=== PATIENT | female | born 1930 | race Caucasian/White ===

== ENCOUNTER 2017-12-20 00:29 | Emergency (ER) | payer MEDICARE, OTHER ==
[~2017-12-20] VITALS: Ht 154.9 cm; Wt 63.5 kg
[~2017-12-20 00:29] MED LIST: AMARYL4 MG PO; ASPIR 8181 MG PO; ASPIRIN325 PO; ATIVAN1 MG PO; BACTRIM DS TAB1 EACH PO; CALCIUM 500 +1 EAC5 PO; CARDIZEM SR 60M60 MG PO; CARDIZEM120 MG PO; CELEBREX 200 M200 M1 PO; CIPRO500 MG PO; CLONIDINE HCL0.2 M2 PO; COLACE100 MG PO; COMBIVENT INH; DILTIAZEM ER60 M1 PO; DUONEB 2.5-0.5 M3 ML INH; DUREZOL5 ML OPHTHALMIC; ELIQUIS2.5 MG PO; FLOMAX0.4 MG PO; GLUCOPHAGE XR500 MG PO; GLUCOPHAGE500 MG PO; HYDROCHLOROTHIA25 M1 PO; HYDROCODONE-AP1 EAC6 PO; ILEVRO1.7 ML OPHTHALMIC; KEFLEX500 MG PO; KLOR-CON 1010 MEQ PO; LASIX 20 MG TAB20 MG PO; LASIX 40 MG TAB40 M2 PO; LEVOTHYROXIN0.025 MG PO; LISINOPRIL5 MG PO; LOPRESSOR25 PO; MACROBID 100 M100 M1 PO; METAMUCIL PAC1 UDPKT PO; METFORMIN HCL500 MG PO; MILK OF MA2400 MG/10 PO; NORCO 5-325 TA1 EACH PO; PHENAZOPYRIDIN100 M1 PO; POTASSIUM20 PO; PRILOSEC 10MG C10 MG PO; PRILOSEC 20 MG20 MG PO; TAZTIA XT180 MG PO; TRAMADOL 50 MG50 MG PO; ULTRAM 50MG TAB50 MG PO; VITAMIN D1000 UNI1 PO; ZOFRAN4 MG PO
[2017-12-20] MEDS ORDERED: TRADJENTA5 MG PO (00:54)
[2017-12-20] MEDS ORDERED: SINGULAIR 10 MG10 M1 (00:55)
[2017-12-20] MEDS ORDERED: TRAMADOL 50 MG50 MG (00:55)
[2017-12-20] MEDS ORDERED: ZYRTEC10 MG PO (00:55)
[2017-12-20] MEDS ORDERED: SYNTHROID25 MC1 PO (00:55)
[2017-12-20 01:10] LABS: URINE BILIRUBIN NEGATIVE (Negative); URINE BLOOD TRACE (Negative); URINE CLARITY CLEAR; URINE COLOR YELLOW; URINE GLUCOSE-RANDOM NEGATIVE (Negative); URINE KETONES NEGATIVE (Negative); URINE NITRITE-REFLEX NEGATIVE (Negative); URINE PROTEIN NEGATIVE (Negative); URINE SPECIFIC GRAVITY 1.015 (1.005-1.030); URINE UROBILINOGEN 0.2 E.U./dl (0.2-1.0)
[2017-12-20 01:16] LABS: URINE LEUKOCYTES-REFLEX 3+ (Negative)
[2017-12-20 01:34] LABS: CASTS None Seen /LPF (None Seen); SQUAMOUS 0-3 Few /LPF (0-3)
[2017-12-20 01:37] LABS: CRYSTALS None Seen /LPF (None Seen); URINE RBC 0-2 Rare /HPF (0-2); URINE WBC-REFLEX >25 Many /HPF (0-5)
[2017-12-20 01:56] LABS: ABSOLUTE BASOPHILS 0.1 thou/uL (0.0-0.2); ABSOLUTE EOSINOPHILS 0.2 thou/uL (0.0-0.7); ABSOLUTE LYMPHOCYTES 1.5 thou/uL (0.8-5.3); ABSOLUTE MONOCYTES 0.4 thou/uL (0.0-1.2); ABSOLUTE NEUTROPHILS 5.9 thou/uL (1.6-8.1); BASOPHILS 1.2 %; EOSINOPHILS 2.1 %; HEMATOCRIT 33.2 % (37.0-47.0); HEMOGLOBIN 10.7 gm/dL (12.0-15.0); LYMPHOCYTES 18.3 %; MCH 26.5 pg (26.0-34.0); MCHC 32.3 g/dL (28.0-37.0); MCV 81.9 fL (80.0-100.0); MONOCYTES 5.4 %; MPV 9.3 fl. (7.2-11.1); NUCLEATED RBCS 0 /100WBC; PLATELET COUNT* 210 thou/uL (150-400); RBC 4.05 mil/uL (4.20-5.00); RDW-CV 17.5 % (10.5-14.5); WBC 8.1 thou/uL (4.0-11.0)
[2017-12-20 02:04] LABS: ANION GAP 8 mmol/L (7-16); BUN 26 mg/dL (7-18); CALCIUM 9.2 mg/dL (8.5-10.1); CHLORIDE 106 mmol/L (98-107); CO2 24 mmol/L (21-32); CREATININE 1.3 mg/dL (0.6-1.3); GLUCOSE 157 mg/dL (70-99); POTASSIUM 4.7 mmol/L (3.5-5.1); SODIUM 138 mmol/L (136-145)
[2017-12-20 02:11] LABS: ALBUMIN 3.3 g/dL (3.4-5.0); ALKALINE PHOSPHATASE 103 U/L (46-116); SGOT 80 U/L (15-37); SGPT 62 U/L (30-65); TOTAL BILIRUBIN 0.2 mg/dL (<0.1-1.0); TOTAL PROTEIN 7.6 g/dL (6.4-8.2); TROPONIN-I LEVEL <0.06 ng/mL (<0.06)
[2017-12-20 03:38] LABS: BE -2.6 mmol/L (-2 to +3); HCO3 21.1 mmol/L (22.0-26.0); PCO2 32.8 mmHg (35.0-45.0); PO2 83.4 mmHg (75.0-100.0); pH 7.426 (7.340-7.450)
[2017-12-20] MEDS ORDERED: TESSALON PERLE100 MG PO (03:46)
[2017-12-20] MEDS ORDERED: MACROBID 100 M100 M1 PO (03:46)
[2017-12-20 04:10] VITALS: BP 141/87
--- NOTE | 2017-12-20 17:53 | EKG ---
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: JOSH : 1930 Requested By: Monserrat Espinosa Order Number: [id number] MD: Julian Hernandez Measurements Intervals [place] Rate: 109 P: AR: QRS: -36 QRSD: 85 T: 44 QT: 368 QTc: 496 Interpretive Statements Atrial fibrillation Left anterior fascicular block Borderline prolonged QT interval Compared to ECG 12/13/2016 20:24:00 ST (T wave) deviation no longer present Electronically Signed On 12-20-2017 17:53:22 CDT by Julian Hernandez [email or web address] <ELECTRONICALLY SIGNED> By: Jluian Hernandez MD, [facility] 12/20/17 1753 5 5 Julian Hernandez MD, [facility] /EPI
== END 2017-12-20 04:12 | disposition home or self-care (01) ==
LOC: M.ERS 00:29
PROVIDERS: Personal Emergency Response Attendant
DX: N39.0 Urinary tract infection, site not specified (principal); K56.7 Ileus, unspecified; E78.5 Hyperlipidemia, unspecified; E11.9 Type 2 diabetes mellitus without complications; I10 Essential (primary) hypertension; I48.91 Unspecified atrial fibrillation; M19.90 Unspecified osteoarthritis, unspecified site; Z90.49 Acquired absence of other specified parts of digestive tract; Z88.1 Allergy status to other antibiotic agents; Z88.0 Allergy status to penicillin; Z88.5 Allergy status to narcotic agent

== ENCOUNTER 2017-12-26 05:11 | Inpatient (IN) | payer MEDICARE, OTHER ==
[~2017-12-26] VITALS: Ht 154.9 cm; Wt 67.1 kg
[~2017-12-26 05:11] MED LIST changes: +SINGULAIR 10 MG10 M1; +SYNTHROID25 MC1 PO; +TESSALON PERLE100 MG PO; +TRADJENTA5 MG PO; +TRAMADOL 50 MG50 MG; +ZYRTEC10 MG PO
[2017-12-26 05:18] VITALS: BP 143/93
[2017-12-26] MEDS ORDERED: BACTRIM DS TAB1 EACH (05:29)
[2017-12-26 05:36] LABS: URINE BILIRUBIN NEGATIVE (Negative); URINE BLOOD TRACE (Negative); URINE CLARITY CLEAR; URINE COLOR YELLOW; URINE GLUCOSE-RANDOM NEGATIVE (Negative); URINE KETONES NEGATIVE (Negative); URINE NITRITE-REFLEX NEGATIVE (Negative); URINE PROTEIN 2+ (Negative); URINE SPECIFIC GRAVITY 1.015 (1.005-1.030); URINE UROBILINOGEN 0.2 E.U./dl (0.2-1.0)
[2017-12-26 05:39] LABS: URINE LEUKOCYTES-REFLEX 3+ (Negative)
[2017-12-26 05:49] LABS: CRYSTALS None Seen /LPF (None Seen); FINE GRANULAR CASTS 0-3 Few /LPF (None Seen); HYALINE CASTS 0-3 Few /LPF (None Seen); MUCUS 0-3 Light strn/LPF (None Seen); SQUAMOUS 0-3 Few /LPF (0-3); URINE RBC 0-2 Rare /HPF (0-2)
[2017-12-26 05:54] LABS: ABSOLUTE BASOPHILS 0.1 thou/uL (0.0-0.2); ABSOLUTE LYMPHOCYTES 1.4 thou/uL (0.8-5.3); ABSOLUTE MONOCYTES 0.6 thou/uL (0.0-1.2); ABSOLUTE NEUTROPHILS 6.8 thou/uL (1.6-8.1); BASOPHILS 0.8 %; EOSINOPHILS 0.3 %; HEMATOCRIT 34.6 % (37.0-47.0); LYMPHOCYTES 15.9 %; MCH 26.8 pg (26.0-34.0); MCHC 31.7 g/dL (28.0-37.0); MCV 84.7 fL (80.0-100.0); MONOCYTES 6.9 %; MPV 9.9 fl. (7.2-11.1); NUCLEATED RBCS 0 /100WBC; PLATELET COUNT* 223 thou/uL (150-400); POLYS 76.1 %; RBC 4.09 mil/uL (4.20-5.00); RDW-CV 18.6 % (10.5-14.5); WBC 8.9 thou/uL (4.0-11.0)
[2017-12-26 06:00] LABS: ANION GAP 15 mmol/L (7-16); BUN 28 mg/dL (7-18); CHLORIDE 103 mmol/L (98-107); CO2 17 mmol/L (21-32); CREATININE 1.3 mg/dL (0.6-1.3); GLUCOSE 212 mg/dL (70-99); SODIUM 135 mmol/L (136-145)
[2017-12-26 06:09] LABS: ALBUMIN 3.5 g/dL (3.4-5.0); ALKALINE PHOSPHATASE 78 U/L (46-116); LIPASE 58 U/L (73-393); SGOT 26 U/L (15-37); SGPT 51 U/L (30-65); TOTAL BILIRUBIN 0.8 mg/dL (<0.1-1.0); TOTAL PROTEIN 7.5 g/dL (6.4-8.2); TROPONIN-I LEVEL <0.06 ng/mL (<0.06)
--- NOTE | 2017-12-26 07:01 | NUR ---
RECIEVED REPORT AND ASSUMED CARE FROM EDOUARD SANDERS RN. PT RESTING IN BED WITH EYES CLOSED. NO DISTRESS OBSERVED. IV ANTIBIOTICS INFUSING AT THIS TIME. PHYSICIAN AWARE OF LOW BLOOD PRESSURE AND STATES ORDER FOR A FLUID BOLUS TO BE ORDERED.
[2017-12-26 08:00] VITALS: BP 106/64
[2017-12-26 08:18] VITALS: BP 96/62
--- NOTE | 2017-12-26 11:13 | NUR ---
PATIENT CARE ASSUMED AT 1110. PATIENT HAVING ECHOCARDIOGRAM AT THIS TIME.
[2017-12-26 12:10] VITALS: BP 108/68
--- NOTE | 2017-12-26 13:45 | 2DMMODE ---
[place] [address] 2 D/M-MODE ECHOCARDIOGRAM Name: SVEN OLMSTEAD Room: [address] IN [facility]#: [id number] Admission: 12/26/17 Attend Phys: Gaby Sagastume, Discharge: Date of : [birth year] Date of Service: 12/26/17 1345 Report #: [id number] THIS REPORT FOR: //name// APPROVED REPORT Study performed: 12/26/2017 10:56:51 EXAM: Comprehensive 2D, Doppler, and color-flow Echocardiogram Patient Location: In-Patient Room #: 002 Status: routine BSA: 1.62 HR: 82 bpm BP: 106/64 mmHg Rhythm: Atrial Fibrillation Other Information Study Quality: Good Indications Congestive Heart Failure Atrial Fibrillation Echo Enhancing Agent Agent(s) / Amount(s) Used: , cc 2D Dimensions LVEF(%): 37.04 (>50%) IVSd: 13.02 (7-11mm) LVOT Diam: 18.64 (18-24mm) LVDd: 46.51 mm PWd: 10.92 (7-11mm) Ascending Ao: 34.32 (22-36mm) LVDs: 38.24 (25-40mm) Aortic Root: 30.75 mm Kiser's LVEF: 37.04 % Volumes Left Atrial Volume (Systole) LA ESV Index: 46.60 mL/m2 Aortic Valve AoV Peak Kolton.: 2.28 m/s AO Peak Gr.: 20.72 mmHg LVOT Max P.86 mmHg AO Mean Gr.: 12.85 mmHg LVOT Mean P.01 mmHg LVOT Max V: 0.68 m/s AO V2 VTI: 42.46 cm LVOT Mean V: 0.47 m/[place] [address] 2 D/M-MODE ECHOCARDIOGRAM Name: SVEN OLMSTEAD Room: [address] IN [facility]#: [id number] Admission: 12/26/17 Attend Phys: Gaby Sagastume, Discharge: Date of : [birth year] Date of Service: 12/26/17 1345 Report #: [id number] MARTHA (VTI): 0.86 cm2 LVOT V1 VTI: 13.31 cm AI [place]: 1.84 m/s2 AI PHT: 558.91 ms Mitral Valve MV Decel. Time: 115.45 ms MV PHT: 33.48 ms MVA (PHT): 6.57 cm2 TDI Lateral E' Kolton.: 0.10 m/s Pulmonary Valve PV Peak Kolton.: 0.85 m/s PV Peak Gr.: 2.89 mmHg Tricuspid Valve RAP Estimate: 5.00 mmHg TR Peak Gr.: 35.28 mmHg RVSP: 40.28 mmHg PA Pressure: 40.28 mmHg Left Ventricle The left ventricle is normal size. There is normal LV segmental wall motion. Mild concentric left ventricular hypertrophy. Left ventricular systolic function is mildly decreased. LVEF is 45-50%. This study is not technically sufficient to allow evaluation of the LV diastolic function due to atrial fibrillation. Right Ventricle The right ventricle is normal size. The right ventricular systolic function is normal. Atria Left atrium is moderately dilated. The right atrium size is normal. Aortic Valve Moderate aortic valve sclerosis. Mild aortic regurgitation. Mild aortic stenosis. Mitral Valve The mitral valve is normal in structure. Mild to moderate mitral regurgitation. No evidence of mitral valve stenosis. There is normal mitral valve excursion. Tricuspid Valve The tricuspid valve is normal in structure. [place] [address] 2 D/M-MODE ECHOCARDIOGRAM Name: SVEN OLMSTEAD Room: [address]#: [id number] Admission: 12/26/17 Attend Phys: Gaby Sagastume, Discharge: Date of : [birth year] Date of Service: 12/26/17 1345 Report #: [id number] regurgitation. Pulmonic Valve The pulmonary valve is normal in structure. Mild pulmonic regurgitation. Great Vessels The aortic root is normal in size. IVC is normal in size and collapses with >50% inspiration Pericardium There is no pericardial effusion. <Conclusion> The left ventricle is normal size. Mild concentric left ventricular hypertrophy. Left ventricular systolic function is mildly decreased. LVEF is 45-50%. This study is not technically sufficient to allow evaluation of the LV diastolic function due to atrial fibrillation. The right ventricle is normal size. Left atrium is moderately dilated. Moderate aortic valve sclerosis. Mild aortic regurgitation. Mild aortic stenosis. The mitral valve is normal in structure. Mild to moderate mitral regurgitation. No evidence of mitral valve stenosis. There is normal mitral valve excursion. The tricuspid valve is normal in structure. Mild tricuspid regurgitation. The aortic root is normal in size. IVC is normal in size and collapses with >50% inspiration There is no pericardial effusion. There is normal LV segmental wall motion. <ELECTRONICALLY SIGNED> By: Lucio Bonilla MD, FACC 12/26/17 1345 1345 1345 Lucio Bonilla MD, FACC /INF
[2017-12-26 16:02] VITALS: BP 106/64
--- NOTE | 2017-12-26 18:38 | NUR ---
PATIENT PROGRESSING TOWARDS GOALS. APPEARS TO BE AT BASELINE COGNITION, AOX3, FORGETFUL. EXTREMELY HARD OF HEARING. DENIES ANY PAIN THROUGHOUT SHIFT. TRACES A-FIB WITH CONTROLLED 80-90 RATE WHILE IN BED, DOES GET TACHY WITH EXERTION, BUT RETURNS TO NORMAL LIMITS WITH REST. SALINE LOCKED IV IN LEFT FOREARM, FLUSHES WELL. PATIENT INCONTINENT IN BRIEFS X1. UP TO BSC X3 OTHERWISE. PATIENT'S SON'S ONLY CONCERN IS HER COUGH, THAT SHE APPARENTLY HAS CHRONICALLY. STATES "OXYGEN IS THE ONLY THING THAT CURES HER COUGH. I'VE BEEN TRYING TO GET THE DOCTOR TO PRESCRIBE IT FOR HER COUGH." EXPLAINED TO SON THAT OXYGEN CAN ONLY BE GIVEN IF PATIENT HAS INDICATION FOR IT AND THAT HER O2 SATS ARE ADEQUATE WITHOUT IT. SON ADAMENT THAT INSURANCE WILL PAY FOR IT LONG THE PHYSICIAN PRESCRIBES IT. AT THIS TIME, O2 ON AT 2L NC PER SON REQUEST, PATIENT STILL COUGHING. NO OTHER CONCERNS VOICED. PATIENT TELE STATUS.
--- NOTE | 2017-12-26 19:35 | EKG ---
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: : 1930 Requested By: Grant Harper Order Number: [id number] MD: Julian Hernandez Measurements Intervals [place] Rate: 107 P: AL: QRS: -35 QRSD: 87 T: 47 QT: 343 QTc: 458 Interpretive Statements Atrial fibrillation LVH with secondary repolarization abnormality Compared to ECG 12/20/2017 01:06:36 Left ventricular hypertrophy now present Early repolarization now present Electronically Signed On 12-26-2017 19:34:52 CDT by Julian Hernandez [email or web address] <ELECTRONICALLY SIGNED> By: Julian Hernandez MD, [facility] 12/26/17 1934 Julian Hernandez MD, FAC /EPI
[2017-12-26 20:00] VITALS: BP 116/57
[2017-12-27] VITALS: BP 127/82
[2017-12-27 04:00] VITALS: BP 110/66
--- NOTE | 2017-12-27 04:21 | NUR ---
PROGRESSING TOWARD GOALS. A-FIB CONTROLLED RATE 80'S. INTERMITTENTLY DESATS TO LOW 80'S WHEN SLEEPING. PT HAS DENIED PAIN. PT TURNS SELF INDEPENDENTLY, BUT WHEN NOTED TO BE IN THE SAME POSITION FOR 2HRS PT HAS BEEN ENCOURAGED TO TURN AND DOES SO WITHOUT NEED OF ASSISTANCE. CALL LIGHT WITHIN REACH.
[2017-12-27 06:06] LABS: HEMATOCRIT 31.3 % (37.0-47.0); HEMOGLOBIN 10.1 gm/dL (12.0-15.0); MCH 26.9 pg (26.0-34.0); MCHC 32.2 g/dL (28.0-37.0); MCV 83.4 fL (80.0-100.0); MPV 9.3 fl. (7.2-11.1); RBC 3.75 mil/uL (4.20-5.00); RDW-CV 18.4 % (10.5-14.5); WBC 8.1 thou/uL (4.0-11.0)
[2017-12-27 06:24] LABS: CALCIUM 8.7 mg/dL (8.5-10.1); CREATININE 1.3 mg/dL (0.6-1.3); POTASSIUM 4.1 mmol/L (3.5-5.1)
[2017-12-27 06:29] LABS: MAGNESIUM 1.7 mg/dL (1.8-2.4); TOTAL BILIRUBIN 0.3 mg/dL (<0.1-1.0); TOTAL PROTEIN 6.2 g/dL (6.4-8.2)
[2017-12-27 07:17] VITALS: BP 126/80
[2017-12-27] MEDS ORDERED: CEFUROXIME500 MG PO (08:01)
[2017-12-27 08:49] VITALS: BP 126/80
[2017-12-27 09:22] VITALS: BP 126/80
[2017-12-27 10:37] VITALS: BP 117/70
[2017-12-27] MEDS ORDERED: CARDIZEM CD120 MG PO (10:39)
--- NOTE | 2017-12-27 11:13 | NUR ---
PATIENT CARE ASSUMED AT 0700. PATIENT REMAINED AOX4, FORGETFUL. DENIED PAIN. HR 110S - 120S, CARDIOLOGY PLACED PATIENT ON DAILY 120 MG ER CARDIZEM. GIVEN, BLOOD PRESSURES REMAINED STABLE. PO CEFUROXIME SCRIPT GIVEN FOR UTI. SCRIPT GIVEN FOR DILTIZAEM. BOTH CALLED TO PHARMACY, PAPER SCRIPTS GIVEN TO SON JUST IN CASE. DRESSED IN OWN CLOTHES. ALL BELONGINGS TAKEN WITH PATIENT. IV DISCONTINUED. PATIENT TAKEN OUT IN HER OWN WHEELCHAIR WITH NURSING STAFF AND SON TO CAR.
== END 2017-12-27 11:11 | disposition home or self-care (01) | DRG 314 ==
LOC: M.ERS 05:11 → M.ICU 06:59 → M.TBA-ER 06:59 → M.ICU 08:20
PROVIDERS: Emergency Medicine Emergency Medical Services; ADMIT Internal Medicine
DX: I95.9 Hypotension, unspecified (principal); I50.33 Acute on chronic diastolic (congestive) heart failure; G93.40 Encephalopathy, unspecified; N39.0 Urinary tract infection, site not specified; I48.2 Chronic atrial fibrillation; I35.0 Nonrheumatic aortic (valve) stenosis; E11.9 Type 2 diabetes mellitus without complications; M19.90 Unspecified osteoarthritis, unspecified site; F99 Mental disorder, not otherwise specified; R05 Cough; E03.9 Hypothyroidism, unspecified; Z88.1 Allergy status to other antibiotic agents; Z88.0 Allergy status to penicillin; Z88.8 Allergy status to other drugs, medicaments and biological substances; Z79.01 Long term (current) use of anticoagulants; Z79.2 Long term (current) use of antibiotics; Z79.899 Other long term (current) drug therapy; Z90.49 Acquired absence of other specified parts of digestive tract

== ENCOUNTER 2018-01-03 06:20 | Inpatient (IN) | payer MEDICARE, OTHER ==
[~2018-01-03] VITALS: Ht 160 cm; Wt 67.4 kg
[~2018-01-03 06:20] MED LIST changes: +BACTRIM DS TAB1 EACH; +CARDIZEM CD120 MG PO; +CEFUROXIME500 MG PO
[2018-01-03 06:38] VITALS: BP 151/73
[2018-01-03 07:27] LABS: ABSOLUTE LYMPHOCYTES 1.2 thou/uL (0.8-5.3); ABSOLUTE MONOCYTES 0.5 thou/uL (0.0-1.2); ABSOLUTE NEUTROPHILS 5.2 thou/uL (1.6-8.1); BASOPHILS 0.5 %; EOSINOPHILS 0.3 %; HEMATOCRIT 33.4 % (37.0-47.0); HEMOGLOBIN 10.6 gm/dL (12.0-15.0); LYMPHOCYTES 17.7 %; MCH 25.9 pg (26.0-34.0); MCHC 31.8 g/dL (28.0-37.0); MCV 81.6 fL (80.0-100.0); MONOCYTES 7.2 %; MPV 9.4 fl. (7.2-11.1); NUCLEATED RBCS 0 /100WBC; PLATELET COUNT* 220 thou/uL (150-400); POLYS 74.3 %
[2018-01-03 07:33] LABS: ANION GAP 9 mmol/L (7-16); BUN 17 mg/dL (7-18); CALCIUM 9.6 mg/dL (8.5-10.1); CHLORIDE 102 mmol/L (98-107); CO2 23 mmol/L (21-32); GLUCOSE 160 mg/dL (70-99); POTASSIUM 4.1 mmol/L (3.5-5.1); SODIUM 134 mmol/L (136-145)
[2018-01-03 07:47] LABS: ALBUMIN 3.4 g/dL (3.4-5.0); ALKALINE PHOSPHATASE 74 U/L (46-116); LIPASE 47 U/L (73-393); SGOT 39 U/L (15-37); SGPT 46 U/L (30-65); TOTAL BILIRUBIN 0.8 mg/dL (<0.1-1.0); TOTAL PROTEIN 7.5 g/dL (6.4-8.2); TROPONIN-I LEVEL <0.06 ng/mL (<0.06)
[2018-01-03 08:24] LABS: BE -2.8 mmol/L (-2 to +3); HCO3 21.5 mmol/L (22.0-26.0); PCO2 35.2 mmHg (35.0-45.0); pH 7.403 (7.340-7.450)
[2018-01-03 08:32] LABS: URINE BILIRUBIN NEGATIVE (Negative); URINE BLOOD TRACE (Negative); URINE CLARITY CLEAR; URINE COLOR YELLOW; URINE GLUCOSE-RANDOM NEGATIVE (Negative); URINE KETONES NEGATIVE (Negative); URINE LEUKOCYTES-REFLEX 1+ (Negative); URINE NITRITE-REFLEX NEGATIVE (Negative); URINE PROTEIN 1+ (Negative); URINE UROBILINOGEN 0.2 E.U./dl (0.2-1.0)
[2018-01-03 08:51] LABS: BACTERIA-REFLEX 1-9 Few /HPF (None Seen); CASTS None Seen /LPF (None Seen); CRYSTALS None Seen /LPF (None Seen); MUCUS 0-3 Light strn/LPF (None Seen); SQUAMOUS 0-3 Few /LPF (0-3); URINE RBC 0-2 Rare /HPF (0-2); URINE WBC-REFLEX 6-15 Few /HPF (0-5)
[2018-01-03 08:59] LABS: APTT 29.4 Seconds (25.0-31.3); INR 1.2; PROTIME 11.2 Seconds (9.20-11.50)
[2018-01-03 09:58] VITALS: BP 120/60
[2018-01-03 10:35] VITALS: BP 125/74
--- NOTE | 2018-01-03 11:00 | NUR ---
RECEIVED REPORT AT PT. ARRIVED TO ROOM, AMBULATED TO BED WITH ASSISTANCE X 2. PT. A/OX4, WITH SOME SLIGHT CONFUSION NOTED. ON 2L NC, VSS, MONITOR PLACED TRACING AFIB. PT. DENIES CURRENT PAIN/SOB. FULL ASSESSMENT AND ADMISSION PROCESS COMPLETED, REFER TO CHARTING. PT. SON AT BEDSIDE. PER REPORTS PT. HAD LOOSE STOOLS AT HOME, BUT WHEN ASKED PT. DENIES RECENT DIARRHEA. PT. ORIENTED TO ROOM/PROCEDURES. CALL LIGHT IN REACH, FALL PRECAUTIONS IN PLACE. WILL CONTINUE WITH PLAN OF CARE.
[2018-01-03 16:11] VITALS: BP 126/63
--- NOTE | 2018-01-03 17:20 | EKG ---
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
--- NOTE | 2018-01-03 18:32 | NUR ---
PT. SLEEPING MOST OF SHIFT, VERY HARD TO AROUSE AT TIMES, AND CONFUSED UPON FIRST AWAKENING. C/O OF MILD ABD THIS EVENING, HOWEVER STATED SHE WAS HUNGRY AND ATE A FULL DINNER WITH OUT COMPLICATIONS. INCONT. OF LARGE AMOUNT OF URINE THIS SHIFT. NO STOOLS, AWAITING SAMPLE. HOURLY ROUNDING COMPLETED THORUGH OUT THE DAY FOR PT. SAFETY.
[2018-01-03 20:01] VITALS: BP 107/62
[2018-01-04] VITALS (7 sets, daily range): BP systolic 96–136; BP diastolic 45–76
[2018-01-04 05:23] LABS: ALBUMIN 2.8 g/dL (3.4-5.0); CALCIUM 8.7 mg/dL (8.5-10.1); CREATININE 1.2 mg/dL (0.6-1.3); MAGNESIUM 1.6 mg/dL (1.8-2.4); TOTAL BILIRUBIN 0.4 mg/dL (<0.1-1.0); TOTAL PROTEIN 6.3 g/dL (6.4-8.2)
--- NOTE | 2018-01-04 06:54 | NUR ---
Pt drowsy at beginning of shift, but arousable to verbal & light physical stimuli. Pt more arousable as shift went on. Incontinent of bladder twice overnight, but also up to BSC to void on two other occasions. On 2L O2 per NC. Denies pain, no complaints. VSS. Afib per monitor, rate controlled. Will continue to monitor.
[2018-01-04] MEDS ORDERED: SINGULAIR 10 MG10 M1 PO (07:50)
--- NOTE | 2018-01-04 15:57 | NUR ---
CM SPOKE TO THE PATIENT AND HER SON ANDRE TO DISCUSS HOME SITUATION, DISCHARGE PLANNING, AND TO INFORM OF THE ROLE OF CM. PATIENT ALERT AND ORIENTED. PATIENT RESIDES AT HOME WITH HER SON ANDRE, AND HE IS AVAILABLE TO ASSIST THE PATIENT NEEDED. PATIENT HAS A WALKER AND CANE FOR MOBILITY. PATIENT HAS NO HX OF HH. PATIENT HAS A HX OF SNF AT [place]. PATIENT ANS SON STATE THAT THE PLAN IS FOR THE PATIENT TO RETURN HOME AT D/C. PATIENT AND SON DECLINE HH AT THIS TIME, DESPITE EDUCATION AND ENCOURAGEMENT. CM WILL REMAIN AVAILABLE TO ASSIST AND FOLLOW NEEDED.
--- NOTE | 2018-01-04 16:28 | NUR ---
ASSUMED CARE OF PT AROUND 0730 THIS AM. REFER TO ASSESSMENT. PT HAS HAD NO C/O ABDOMINAL PAIN TODAY, TOLERATING REGULAR DIET. OK TO DC HOME PER DR. PELAEZ. AWAITING FOR GI PHYSICIAN TO ROUND. NO OTHER CONCERNS AT THIS TIME. CLWR. WCTM.
[2018-01-05] VITALS: BP 117/69
[2018-01-05 04:00] VITALS: BP 115/49
[2018-01-05 07:30] VITALS: BP 130/88
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
[2018-01-05 11:59] VITALS: BP 134/85
--- NOTE | 2018-01-05 12:00 | NUR ---
CONTINUE TO FOLLOW, MET [facility] PT. SHE PLANS TO RETURM HOME WITH SON. DIDN'T QUALIFY FOR O2, SHE EXPRESSED THAT 'DIDN'T WANT IT ANYWAY.' NO DC NEEDS ID'D
--- NOTE | 2018-01-05 12:07 | NUR ---
RECEIVED PT CARE 0700. SHE IS ALERT AND ORIENTED X4, FORGETFUL AT TIMES. HARD OF HEARING. VSS. STORE CONSULTANT TRACING AFIB. SHE DENIES PAIN. NO SOA. O2 SAT 100% ON 2L NC. TITRATED TO ROOM AIR. REST/EXERCISE O2 STUDY COMPLETED PER RESPIRATORY AND SHE DOES NOT NEED O2 AT HOME. AM ASSESSMENT CHARTED. MEDS PER MAR. SHE TRANSFERS WITH ASSIST X1 TO BEDSIDE COMMODE. PLANNING FOR DC TODAY. KEEPING CALL LIGHT WITHIN REACH. WILL CONTINUE TO MONITOR.
--- NOTE | 2018-01-05 13:50 | NUR ---
RECEIVED DISCHARGE ORDERS PER DR PELAEZ. IV DISCONTINUED. REGULATORY INTERN REMOVED AND RETURNED TO NURSE'S DESK. EDUCATED THE PATIENTS SON ON F/U APPT WITH HER PRIMARY AND A GI PHYSICIAN. WE ASSISTED PATIENT IN GETTING DRESSED. ALL BELONGINGS PACKED AND LEAVING WITH PATIENT. SHE IS LEAVING VIA WHEELCHAIR ACCOMPANIED BY NURSING STAFF AND HER SON. NO QUESTIONS OR CONCERNS AT DISCHARGE.
== END 2018-01-05 13:35 | disposition home or self-care (01) | DRG 917 ==
LOC: M.ERS 06:20 → M.2W 08:49 → M.TBA-ER 08:49 → M.2W 10:31
PROVIDERS: Family Medicine; Personal Emergency Response Attendant; ADMIT Internal Medicine
DX: T62.8X1A Toxic effect of other specified noxious substances eaten as food, accidental (unintentional), initial encounter (principal); I50.33 Acute on chronic diastolic (congestive) heart failure; N39.0 Urinary tract infection, site not specified; E44.1 Mild protein-calorie malnutrition; J98.11 Atelectasis; E78.5 Hyperlipidemia, unspecified; E11.9 Type 2 diabetes mellitus without complications; I11.0 Hypertensive heart disease with heart failure; M19.90 Unspecified osteoarthritis, unspecified site; I48.2 Chronic atrial fibrillation; R09.02 Hypoxemia; E03.9 Hypothyroidism, unspecified; H91.90 Unspecified hearing loss, unspecified ear; Z90.49 Acquired absence of other specified parts of digestive tract; Z88.1 Allergy status to other antibiotic agents; Z88.0 Allergy status to penicillin; Z88.8 Allergy status to other drugs, medicaments and biological substances

== ENCOUNTER 2018-01-10 03:14 | Inpatient (IN) | payer MEDICARE, OTHER ==
[~2018-01-10] VITALS: Ht 154.9 cm; Wt 68.5 kg
--- NOTE | ~2018-01-10 | PROC ---
[facility] [address] [place] [address] PROCEDURE REPORT Name: SVEN OLMSTEAD Room: [address] IN .R.#: [id number] Admission: 01/10/18 Attend Phys: Gaby Sagastume MD Discharge: 01/12/18 Date of : [birth year] Report #: [id number] THIS REPORT FOR: //name// For GI report, please see the Provation report in Perceptive 7 content. By: 1421Medical Records Staff KARI /SANJU
[~2018-01-10 03:14] MED LIST changes: +SINGULAIR 10 MG10 M1 PO
[2018-01-10 03:23] VITALS: BP 168/120
[2018-01-10 03:39] LABS: ABSOLUTE BASOPHILS 0.1 thou/uL (0.0-0.2); ABSOLUTE EOSINOPHILS 0.1 thou/uL (0.0-0.7); ABSOLUTE LYMPHOCYTES 1.8 thou/uL (0.8-5.3); ABSOLUTE MONOCYTES 0.4 thou/uL (0.0-1.2); ABSOLUTE NEUTROPHILS 5.4 thou/uL (1.6-8.1); BASOPHILS 1.3 %; EOSINOPHILS 0.7 %; HEMATOCRIT 33.6 % (37.0-47.0); HEMOGLOBIN 10.5 gm/dL (12.0-15.0); LYMPHOCYTES 22.9 %; MCH 25.6 pg (26.0-34.0); MCHC 31.2 g/dL (28.0-37.0); MONOCYTES 5.5 %; MPV 9.6 fl. (7.2-11.1); NUCLEATED RBCS 0 /100WBC; PLATELET COUNT* 231 thou/uL (150-400); POLYS 69.6 %; RDW-CV 17.7 % (10.5-14.5); WBC 7.7 thou/uL (4.0-11.0)
[2018-01-10 03:51] LABS: ANION GAP 13 mmol/L (7-16); BUN 19 mg/dL (7-18); CALCIUM 9.1 mg/dL (8.5-10.1); CHLORIDE 103 mmol/L (98-107); CO2 21 mmol/L (21-32); CREATININE 1.1 mg/dL (0.6-1.3); GLUCOSE 231 mg/dL (70-99); INR 1.2; POTASSIUM 3.9 mmol/L (3.5-5.1); PROTIME 11.7 Seconds (9.20-11.50); SODIUM 137 mmol/L (136-145)
[2018-01-10 04:01] LABS: ALBUMIN 3.5 g/dL (3.4-5.0); ALKALINE PHOSPHATASE 76 U/L (46-116); LIPASE 67 U/L (73-393); NT-PRO BRAIN NAT PEPTIDE 7552 pg/mL (<300); SGOT 45 U/L (15-37); SGPT 52 U/L (30-65); TOTAL BILIRUBIN 0.7 mg/dL (<0.1-1.0); TOTAL PROTEIN 7.6 g/dL (6.4-8.2); TROPONIN-I LEVEL <0.06 ng/mL (<0.06)
[2018-01-10 05:22] VITALS: BP 113/73
[2018-01-10 08:00] VITALS: BP 115/60
--- NOTE | 2018-01-10 10:57 | NUR ---
ASSUMED PT CARE AT 0730, FULL ASSESMENT DONE CHARTED. PT A/O X4, VERY [place], DENIES PAIN OR SOA, PT FOUND ON RA THIS AM AT APPROX 0830, SAT WAS 91%, NO COUGH NOTED. PTS VSS, UP WITH ASSIST TO BSC, BED ALARM ON. PTS SON AT BEDSIDE, ASKING FOR PLAN TODAY, HE SPOKE TO DR PELAEZ AT THE NURSES STATION, WILL UPDATE HIM ON PLAN OF CARE NEEDED.
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
[2018-01-10 13:51] VITALS: BP 113/89
[2018-01-10 14:11] LABS: URINE BILIRUBIN NEGATIVE (Negative); URINE BLOOD TRACE (Negative); URINE CLARITY CLEAR; URINE COLOR YELLOW; URINE GLUCOSE-RANDOM NEGATIVE (Negative); URINE KETONES NEGATIVE (Negative); URINE LEUKOCYTES-REFLEX 1+ (Negative); URINE NITRITE-REFLEX NEGATIVE (Negative); URINE PROTEIN 1+ (Negative); URINE SPECIFIC GRAVITY 1.025 (1.005-1.030); URINE UROBILINOGEN 0.2 E.U./dl (0.2-1.0)
[2018-01-10 14:37] LABS: SQUAMOUS 4-10 Moderate /LPF (0-3)
[2018-01-10 14:38] LABS: BACTERIA-REFLEX 1-9 Few /HPF (None Seen); CASTS None Seen /LPF (None Seen); CRYSTALS None Seen /LPF (None Seen); URINE RBC 0-2 Rare /HPF (0-2)
[2018-01-10 16:47] VITALS: BP 121/72
--- NOTE | 2018-01-10 17:27 | EKG ---
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 : 1930 Requested By: Robert Mensah Order Number: [id number] MD: Julian Hernandez Measurements Intervals [place] Rate: 93 P: [place]: QRS: -39 QRSD: 89 T: -1 QT: 364 QTc: 453 Interpretive Statements Atrial fibrillation Left axis deviation Compared to ECG 01/03/2018 06:57:16 No significant changes noted Electronically Signed On 01-10-2018 17:27:42 CDT by Julian Hernandez [email or web address] <ELECTRONICALLY SIGNED> By: Julian Hernandez MD, [facility] 01/10/18 1727 Julian Hernandez MD, [facility] /EPI
--- NOTE | 2018-01-10 19:42 | NUR ---
PT DENIES PAIN OR SOA THIS AFTERNOON. SHE STATES DR CAME TO SEE HER AND "IS GOING TO GO DOWN HER THROAT TOMORROW". NO EGD IS ORDERED AT THIS TIME. PT USING CALL LIGHT APPROPRIATLY. VSS, AFIB ON THE MONITOR. REPORT GIVEN TO DONNA CHÁVEZ.
[2018-01-10 20:00] VITALS: BP 117/72
[2018-01-11] VITALS (7 sets, daily range): BP systolic 114–138; BP diastolic 64–80
--- NOTE | 2018-01-11 05:34 | NUR ---
PATIENT RESTED IN BED, SLEEP STUDY PREFORMED. PATIENT O2 FELL DURING TEST, PATIENT WAS PLACE ON 1 LITER O2. PATIENT O2 RETURNED TO NORMAL. PATIENT IS NOT SHOWING SIGNS OF DISTRESS. FALL PRECAUTIONS IN PLACE, BED ALARM ON, CALL LIGHT WITH IN REACH, HOURLY ROUNDING OBSERVED.
[2018-01-11 05:39] LABS: ABSOLUTE BASOPHILS 0.1 thou/uL (0.0-0.2); ABSOLUTE EOSINOPHILS 0.2 thou/uL (0.0-0.7); ABSOLUTE LYMPHOCYTES 1.4 thou/uL (0.8-5.3); ABSOLUTE MONOCYTES 0.4 thou/uL (0.0-1.2); ABSOLUTE NEUTROPHILS 3.8 thou/uL (1.6-8.1); BASOPHILS 1.2 %; EOSINOPHILS 3.1 %; HEMATOCRIT 29.8 % (37.0-47.0); HEMOGLOBIN 9.4 gm/dL (12.0-15.0); LYMPHOCYTES 24.1 %; MCH 25.7 pg (26.0-34.0); MCHC 31.4 g/dL (28.0-37.0); MCV 81.8 fL (80.0-100.0); MONOCYTES 6.6 %; MPV 9.7 fl. (7.2-11.1); NUCLEATED RBCS 0 /100WBC; PLATELET COUNT* 185 thou/uL (150-400); RBC 3.64 mil/uL (4.20-5.00); RDW-CV 17.6 % (10.5-14.5); WBC 5.9 thou/uL (4.0-11.0)
[2018-01-11 06:14] LABS: CALCIUM 8.3 mg/dL (8.5-10.1); POTASSIUM 3.7 mmol/L (3.5-5.1)
--- NOTE | 2018-01-11 06:51 | NUR ---
PATIENT HAS BEEN NPO EXPECT MEDS DUE TO TESTING.
--- NOTE | 2018-01-11 14:30 | NUR ---
DISCUSSED WITH DR PELAEZ, HE ASKED THAT I TALK WITH PT'S SON RE: O2 NEEDS AND F/U. PT OFF UNIT IN GI LAB, WAS ABLE TO MEET WITH SON/ANDRE TO DISCUSS HOME SITUATION/DC PLANNING. ANDRE STATED HE HAD BROUGHT HIS MOTHER TO HOSPITAL 4TIMES RECENTLY, THAT SHE WAKES UP COUGHING AND CAN'T BREATHE WELL AND IS ALWAYS ON OXYGEN IN THE HOSPITAL. HE STATED THAT DR GEE WAS WORKING ON GETTING O2 ARRANGED FOR HER. CALL TO DR GEE'S OFFICE, SPOKE WITH YEFRI. SHE CONFIRMED THAT THEY WERE WORKING WITH [facility] AND WOULD GET IT SET UP. UPDATED ANDRE AND ASSURED HIM THAT PT HAD OVERNIGHT SAT STUDY HERE AND IF NOT SET UP BY DRS OFFICE AT TIME OF HOSPTIAL DC, THAT CM COULD SET IT UP. HE SAID THAT PT IS INDEPENDENT WITH HER ADLS, DRESSING AND BATHING, THAT SHE USES WALKER TO GET AROUND THE HOUSE. HE DECLINED HH. HE SPENT A LARGE AMOUNT OF TIME TALKING ABOUT HIS SISTER/EVAN IN [place] WHO HE STATES HAS POA, NOT SURE IF DPOA OR JUST FINANCIAL, BUT HE DID VOICE THAT THERE WERE DISCUSSIONS ABOUT PT'S MONEY AND THAT EVAN HELPS MANAGE IT. ALSO THAT EVAN HAD DISCUSSED MOVING PT TO [place]. TOLD HIM THAT IF HE HAD CONCERN ABOUT MISMANAGEMENT OR TAKING ADVANTAGE OF HIS MOTHER, HE COULD CONTACT [facility] AND GAVE HIM THE NUMBER. HE STATED HE HAD SPOKEN WITH LAN ADMINISTRATOR AND COULDN'T GET INFO OTHER THAN HIS MOTHER MIGHT BE 'SEEN NOT COMPETENT' BY THE OUTSIDE WORLD D/T HER [place]. ASSURED HIM THAT UNLESS SHE HAD BEEN DEEMED THAT, IT WASN'T SO. HE WAS NOT AWARE OF A DR DOING THAT. OFFERED INFO ON AN [employer] INSURANCE ACCOUNT MANAGER AND HE WAS APPRECIATIVE OF THAT. ANDRE STATED THAT HE PLANS TO TAKE PT HOME AGAIN AT IN AND HOPES TO HAVE O2. DECLINES HH. MET WITH PT AFTER SHE RETURNED FROM [facility] BUT SHE WAS GROGGY. WILL SEE TOMORROW AND FOLLOW.
--- NOTE | 2018-01-11 18:30 | NUR ---
ASSUMED CARE OF PT AT 0730. PT REMAINS A&O X4 AND [place]. PT WAS NPO RHIS MORNING FOR EGD. PT RETURNED FROM EGD AND REMAINS NPO PER DR MALDONADO, UNTIL VIDEO SWALLOW IS COMPLETED. PT C/O ABD PAIN HAVE BEEN ADEQUATELY CONTROLLED WITH MEDICATIONS PER AUG. PT IS CURRENTLY RESTING IN BED VSS AND SHE HAS BEEN TRACING A FIB ON THE MONITOR. CONTINUED SUP. O2 AT 1 L VIA NC. NURSING WILL CONTINUE TO MONITOR.
[2018-01-12] VITALS: BP 123/61
[2018-01-12 04:00] VITALS: BP 142/41
--- NOTE | 2018-01-12 05:45 | NUR ---
ASSUMED CARE OF PATIENT AFTER REPORT AT 1930. PT A&OX4.VSS. PHYSICAL ASSESSMENT COMPLETED AND CHARTED. PT ON O2 VIA NC @ 1L WITH 96% O2 SAT. PT TRACING AFIB ON TELE. PT UP WITH 1 ASSIST. MAINTAINED ON NPO.WILL DO VIDEO SWALLOW THIS AM. DENIES ANY PAIN OR DISCOMFORT. PER PROVIDER MAY NOT START NS INFUSION UNTIL AM OF 01/12/18.HOURLY ROUNDING OBSERVED. HS REST& SAFETY GOALS ACHIEVED. CALL LIGHT WITHIN REACH. BED IN LOW POSITION.
[2018-01-12 07:33] VITALS: BP 135/79
[2018-01-12 09:48] VITALS: BP 135/79
--- NOTE | 2018-01-12 12:00 | NUR ---
DISCUSSED WITH DR PELAEZ, PT TO GO HOME TODAY PER SON'S INSISTENCE. SON ANDRE IN [place], COMING UP TO DESK SEVERAL TIMES, TALKING LOUD AND VOICING COMPLAINTS ABOUT CARE. VOICED HE THOUGHT 'SERVICE IS TERRIBLE' AND TAKING HIS MOM HOME. ARRANGED NOC O2 THRU [facility] TO BE DELIVERED TONIGHT. SON AWARE AND NUMBER IN DC INFO. DISCUSSED WITH DR PELAEZ, ASKED THAT REPORT BE CALLED TO [facility]. DONE
--- NOTE | 2018-01-12 12:32 | NUR ---
ASSUMED CARE OF PT AT 0720. PT REMAINS A&O X4 CALM AND COOPERATIVE. C/O ABD PAIN CONTROLLED WITH PRN MEDICATIONS PER AUG. PT AND SON VERBALIZED UNDERSTANDING OF DC INSRTUCTIONS. PT TOOK ALL PERSONAL BELONGINGS WELL DISCHARGE PAPERWORK. PT VSS, SKIN W/D/I AND NO C/O PAIN OR DISTRESS AT TIME OF DISCHARGE, IV AND COORDINATOR OF EVALUATION REMOVED PRIOR TO DISCHARGE.
--- NOTE | 2018-01-17 12:32 | CON ---
[address] [address] CONSULTATION Name: ISHANSVEN Mar Room: [address]#: [id number] Admission: 01/10/18 Attend Phys: Gaby Sagastume MD Discharge: 01/12/18 Date of : [birth year] Report #: [id number] THIS REPORT FOR: //name// CC: Gaby Avendano DATE OF SERVICE: 01/10/2018 REQUESTING PHYSICIAN: Gaby Sagastume MD REASON FOR CONSULT: Epigastric pain, anorexia, persistent cough. HISTORY OF PRESENT ILLNESS: This is an 87-year-old female with history of a-fib and CHF who was admitted to hospital with intermittent abdominal pain. The patient has had imaging, which has been unrevealing. She denies any hematochezia, melena or hematemesis and vomiting. She occasionally may have GERD symptoms. PAST MEDICAL HISTORY: Significant for history of a-fib, hypothyroidism, hypertension, CHF, diabetes, gastroesophageal reflux disease, arthritis, history of C-sections, appendectomy. ALLERGIES: SIGNIFICANT TO PENICILLIN, PROPOXYPHENE, CIPROFLOXACIN. MEDICATIONS: Please refer to hospital MAR. SOCIAL HISTORY: The patient denies tobacco or alcohol use. FAMILY HISTORY: Noncontributory. PHYSICAL EXAMINATION: VITAL SIGNS: Reveals blood pressure of 121/72, respiration is 20, pulse 77, temperature 97.4. LUNGS: Clear. CARDIOVASCULAR: Regular rate. ABDOMEN: Soft, mildly tender to palpation in the epigastric region. Bowel sounds are positive. NEUROLOGIC: The patient is alert, oriented times 3. LABORATORY DATA: Reveal sodium of 137, potassium 3.9, BUN is 19, creatinine 1.1, glucose is 231, AST 45, ALT is 52, bilirubin is 0.7, alkaline phosphatase is 76. INR is 1.2. WBC 7.7 with hemoglobin of 10.5 and platelet of 231. IMAGING DATA: Abdominal ultrasound was obtained on 01/04, which revealed gallbladder mural thickening. There is no evidence of [place] [address] CONSULTATION Name: SVEN OLMSTEAD Room: [address]#: [id number] Admission: 01/10/18 Attend Phys: Gaby Sagastume MD Discharge: 01/12/18 Date of : [birth year] Report #: [id number] pericholecystic fluid. The ducts also appear normal in size. ASSESSMENT AND PLAN: The patient with epigastric pain, chronic cough and history of gastroesophageal reflux disease, for which she takes omeprazole 20 mg daily. We will go ahead and perform an upper endoscopy to rule out gastroduodenal ulcer versus gastritis versus esophagitis. We will make further recommendation after the endoscopy is complete. <ELECTRONICALLY SIGNED> By: Miriam Valdovinos MD 01/17/18 1232 1706 [id number] Valdovinos MD /[facility]
== END 2018-01-12 12:35 | disposition home or self-care (01) | DRG 392 ==
LOC: M.ERS 03:14 → M.TBA-ER 04:28 → M.2W 04:28
PROVIDERS: Emergency Medicine; Internal Medicine; ADMIT Internal Medicine
PROC: 0DJ08ZZ Inspection of Upper Intestinal Tract, Via Natural or Artificial Opening Endoscopic (ICD-10-PCS; principal; 2018-01-10)
DX: K29.00 Acute gastritis without bleeding (principal); I50.32 Chronic diastolic (congestive) heart failure; I11.0 Hypertensive heart disease with heart failure; E78.5 Hyperlipidemia, unspecified; E11.9 Type 2 diabetes mellitus without complications; M19.90 Unspecified osteoarthritis, unspecified site; I48.91 Unspecified atrial fibrillation; E03.9 Hypothyroidism, unspecified; D64.9 Anemia, unspecified; R05 Cough; K21.0 Gastro-esophageal reflux disease with esophagitis; K44.9 Diaphragmatic hernia without obstruction or gangrene; G47.33 Obstructive sleep apnea (adult) (pediatric); Z88.6 Allergy status to analgesic agent; Z88.0 Allergy status to penicillin; Z88.8 Allergy status to other drugs, medicaments and biological substances; Z90.49 Acquired absence of other specified parts of digestive tract; Z79.01 Long term (current) use of anticoagulants

== ENCOUNTER → 2018-01-17 | Outpatient (CLI) | payer MEDICARE, OTHER | LOC: M.RAD 10:44 | DX: R13.12 Dysphagia, oropharyngeal phase (principal); R05 Cough; I10 Essential (primary) hypertension; E11.9 Type 2 diabetes mellitus without complications; I48.91 Unspecified atrial fibrillation; E78.5 Hyperlipidemia, unspecified; Z88.0 Allergy status to penicillin ==